=== PATIENT | female | born 1975 | race Hispanic/Latino ===

== ENCOUNTER 2018-02-15 21:23 | Emergency (ER) | payer OTHER ==
[~2018-02-15] VITALS: Ht 165.1 cm; Wt 90.7 kg
[2018-02-15 21:30] VITALS: BP 154/95
--- NOTE | 2018-02-15 22:07 | RADIOLOGY REPORT ---
EXAMINATION: XR ANKLE, RIGHT CLINICAL INFORMATION: Pain status-post injury. COMPARISON: None TECHNIQUE: AP, lateral, and mortise views of the right ankle. FINDINGS: Bony alignment and mineralization are normal. No fracture, dislocation or right ankle joint effusion is seen. Boehler's angle is normal. There is a very small plantar calcaneal spur. The soft tissue planes are unremarkable, without foreign body. IMPRESSION: 1. No fracture, dislocation or right ankle joint effusion is seen. 2. There is a very small plantar calcaneal spur.
--- NOTE | 2018-02-15 22:38 | ED GENERAL ADULT ---
History of Present Illness General Chief Complaint: Foot or Ankle Injury Stated Complaint: PT RT ANKLE IS SWOLLEN AND VERY PAINFUL Source: patient, family Exam Limitations: no limitations Vital Signs & Intake/Output Vital Signs & Intake/Output Vital Signs Date Time Temp Pulse Resp B/P B/P Pulse O2 O2 Flow FiO2 Mean Ox Delivery Rate 02/15 2130 98.6 98 18 154/95 96 Room Air ED Intake and Output 02/16 0000 02/15 1200 Intake Total 0 Output Total Balance 0 Intake, Oral 0 Patient 200 lb Weight Weight Reported by Patient Measurement Method Allergies Coded Allergies: morphine (ITCHY THROAT PER PT 02/15/18) Triage Note: PT FROM HOME C/O RT ANKLE PAIN XFEW WEEKS PRIOR. PT STATES SHE WAS SEEN AT WALK IN CLINIC FOR A XRAY OF THE RT ANKLE WITH NO BREAKS. PT STATES SHE HAS TRIED ICE AND MOTRIN WITHOUT RELIEF. PT STATES SHE HAS NOT FOLLOWED UP WITH AN ORTHOPEDIC. PT COMPLAINT TODAY OF RT ANKLE PAIN 02/14, WITH SWELLING PER PT. PT ABLE TO AMBULATE. Triage Nurses Notes Reviewed? yes : No Patient currently breastfeeds: No HPI: This is an otherwise healthy 6-year-old female with history of remote right ankle surgery, presented to the emergency department with right ankle pain and swelling. Patient states that she "twisted my ankle "about 2 weeks ago. At that time, she sought care in urgent care facility and underwent an x-ray which was negative for any acute fracture or bony pathology. Since that time, the patient has been walking on the foot daily, continues to go to work and has not taken any regular pain medication, nor she elevated the leg or applied compression or ice. She states that the pain has worsened to the point where is not difficult for her to ambulate. She denies any swelling in her calf or pain in her lower leg, knee, hip. She denies falling or striking her head. She denies any headache or neck pain. (Berhane Cody MD) Past History Travel History Traveled to [place] past 21 day No Medical History Any Pertinent Medical History? none Surgical History Surgical History: none Psychosocial History What is your primary language Bahamian Tobacco Use: Never used ETOH Use: occasional use Illicit Drug Use: denies illicit drug use Family History Hx Contributory? No (Berhane Cody MD) Review of Systems Review of Systems Constitutional: Reports: no symptoms. EENTM: Reports: no symptoms. Respiratory: Reports: no symptoms. Cardiovascular: Reports: no symptoms. GI: Reports: no symptoms. Genitourinary: Reports: no symptoms. Musculoskeletal: Reports: see HPI. Skin: Reports: no symptoms. Neurological/Psychological: Reports: no symptoms. Hematologic/Endocrine: Reports: no symptoms. Immunologic/Allergic: Reports: no symptoms. (Berhane Cody MD) Physical Exam Physical Exam General Appearance: well developed/nourished, no apparent distress, alert, comfortable Head: atraumatic, normal appearance Eyes: Bilateral: normal appearance. Ears, Nose, Throat: hearing grossly normal, moist mucus membranes Neck: normal inspection, supple, full range of motion Respiratory: no respiratory distress Cardiovascular: regular rate/rhythm, normal peripheral pulses Gastrointestinal: soft, non-tender Back: normal inspection, normal range of motion Extremities: swelling, tenderness Neurologic/Psych: no motor/sensory deficits, awake, alert, oriented x 3, normal mood/affect Skin: intact, warm/dry Comments: Well-appearing 42-year-old female with mild swelling and tenderness to the right ankle. She has tenderness to bilateral malleoli. There is no obvious or gross instability. She is neurovascularly intact distally. There are no skin changes. Well-healed vertical scar to the right lateral ankle is noted and appears unremarkable. Core Measures ACS in differential dx? No CVA/TIA Diagnosis: No Sepsis Present: No Sepsis Focused Exam Completed? No (Berhane Cody MD) Progress Differential Diagnoses I considered the following diagnoses in my evaluation of the patient: Ankle fracture, ankle sprain, low suspicion for high ankle fracture/sprain. Low suspicion also for knee injury given lack of pain or instability to the joint. Low suspicion for nonaccidental trauma. Doubt septic joint or nontraumatic arthritis in this patient. Plan of Care: Orders Procedure Date/time Status Durable Medical Equipment 02/15 2230 Active X-ray shows no fracture. Patient given crutches, placed an Justen wrap, advised to avoid weightbearing for 1 week. She is also given a cam boot for progression to weightbearing. She is provided with the on-call orthopedic surgeon, Erick Herron MD; she is discharged home with return precautions and follow-up instructions. Initial ED EKG: none (Berhane Cody MD) Departure Departure Time of Disposition: 2235 Disposition: HOME OR SELF CARE Condition: Stable Clinical Impression Primary Impression: Ankle sprain Referrals: Patient Has No Primary Care Dr (PCP/Family) Additional Instructions: Thank you for coming to [facility] today. As we discussed, recommend that you ice the ankle 3 times per day for 20 minutes with a bag of ice wrapped in a towel, also recommend he elevate the leg at night and as much as possible above the level of your heart. I also recommend that you take ibuprofen for the next few days, 600 mg every 6 hours and then only as needed for pain. Please use the compression wrap that we talked about for the pain. Try to keep off the foot as much as possible for the next few days. Transition to the cam boot when able, however it would be better to put no weight on the ankle for the next week or so. Please follow-up with your primary doctor for reassessment. Departure Forms: Customer Survey General Discharge Information (Berhane Cody MD) Resident Co-Sign Statement Statement: ED Attending supervision documentation- [] I saw and evaluated the patient. I have also reviewed all the pertinent lab results and diagnostic results. I agree with the findings and the plan of care as documented in the Resident's documentation. [x] I have reviewed the ED Record and agree with the Resident's documentation. [] Additions or exceptions (if any) to the Resident's note and plan are summarized below: [] (Obinna Dickey DO) Critical Care Note Critical Care Note Critical Care Time: non-applicable (Berhane Cody MD)
== END 2018-02-15 22:41 ==
LOC: ERH 21:23
DX: S93.401A Sprain of unspecified ligament of right ankle, initial encounter (principal); X58.XXXA Exposure to other specified factors, initial encounter; Y92.9 Unspecified place or not applicable; Y93.9 Activity, unspecified
CPT/HCPCS: 73610-RT